=== PATIENT | female | born 1960 | race Caucasian/White ===

== ENCOUNTER 2016-11-14 15:37 | Emergency (ER) | payer OTHER ==
[~2016-11-14] VITALS: Ht 157.5 cm; Wt 71.3 kg
[~2016-11-14 15:37] MED LIST: CLEOCIN300 MG PO; ENDOCET 5-3251 EACH PO; IBUPROFEN800 MG PO; LEXAPRO10 MG PO; MEGACE40 MG PO; PERCOCET 5/31 TABLET PO; ULTRAM50 MG PO; VOLTAREN50 MG PO; ZESTORETIC 20-1 EAC1 PO; ZESTRIL,PRINIVI10 MG PO
[2016-11-14] MEDS ORDERED: LISINOPRIL-HCT1 EACH PO (16:12)
[2016-11-14 17:07] LABS: EOSINOPHIL (%) 0.6 % (0-5); HEMATOCRIT 36.4 % (36.0-46.0); IMMATURE GRANULOCYTE (%) 0.2 % (0.0-0.7); INSTRUMENT ABS NEUTROPHIL CT 4.5 K/uL; LYMPHOCYTE COUNT 1.3 K/uL (1.0-2.8); MCH 31.2 PG (29.0-34.0); MCHC 34.1 G/DL (30.0-36.0); MCV 91.5 FL (83-99); MEAN PLAT.VOLUME 12.1 uM^3 (9.5-12.4); MONOCYTE (%) 8.4 % (3-12); MONOCYTE COUNT 0.5 K/uL (0-0.8); NEUTROPHIL (%) 69.9 % (45-76); NEUTROPHIL COUNT 4.5 K/uL (1.8-6.4); PLATELET COUNT 160 K/uL (156-360); RBC DIS.WIDTH-CV 12.3 % (11.8-14.6); RED BLOOD COUNT 3.98 M/uL (3.80-5.20); WHITE BLOOD COUNT 6.4 K/uL (4.1-10.2)
[2016-11-14 17:15] LABS: CHLORIDE 107 mEq/L (99-109); POTASSIUM 3.3 mEq/L (3.7-5.4); SODIUM 140 mEq/L (136-147)
[2016-11-14 17:17] LABS: GLUCOSE 99 mg/dL (70-99)
[2016-11-14 17:19] LABS: ANION GAP 9 MEQ/L (2-14); TOTAL BILIRUBIN 0.4 mg/dL (0.0-1.0)
[2016-11-14 17:21] LABS: ALKALINE PHOSPHATASE 49 IU/L (3-129); GFR ESTIMATE (CALCULATED) > 59 mL/min/
[2016-11-14 17:22] LABS: UREA NITROGEN (BUN) 14 mg/dL (9-23)
[2016-11-14 17:24] LABS: LIPASE 30 U/L (1.0-51.0)
[2016-11-14 17:31] LABS: QUANTITATIVE HCG < 4.0 MIU/ML
[2016-11-14 18:34] LABS: ADD MIUA? NO; BILIRUBIN NEGATIVE; BLOOD NEGATIVE; COLOR YELLOW ((YELLOW)); GLUCOSE (STRIP) NEGATIVE; KETONES 20; LEUKOCYTES NEGATIVE; NITRITE NEGATIVE; PROTEIN (STRIP) NEGATIVE; SPECIFIC GRAVITY 1.043 (1.000-1.030); UCUL ADDED? NO; UROBILINOGEN 0.2 MG/DL (0.2-1.0)
[2016-11-14] MEDS ORDERED: MIRALAX17 GM PO (19:06)
[2016-11-14 19:22] VITALS: BP 115/78
== END 2016-11-14 19:35 | disposition home or self-care (01) ==
LOC: EME 15:37
PROVIDERS: Physician Assistant
DX: R10.11 Right upper quadrant pain (principal); K59.00 Constipation, unspecified; R19.7 Diarrhea, unspecified; R11.0 Nausea; K80.20 Calculus of gallbladder without cholecystitis without obstruction; I10 Essential (primary) hypertension; Z90.710 Acquired absence of both cervix and uterus
CPT/HCPCS: 74177; 80053; 81003; 83690; 84702; 85025; 99281; 99285; J2270; J7040